=== PATIENT | female | born 1955 | race Caucasian/White ===

== ENCOUNTER → 2017-03-05 | Outpatient (REF) | payer BC ==
[2017-03-05 12:21] LABS: MEAN CORPUSCULAR HEMOGLOBIN 29.5 pg (27.0-33.0); MEAN CORPUSCULAR HGB CONC 33.1 g/dl (32.0-36.5); MEAN CORPUSCULAR VOLUME 89.1 fl (80.0-96.0); PLATELET COUNT, AUTOMATED 339 10^3/uL (150-450); RED CELL DISTRIBUTION WIDTH 13.5 % (11.5-14.5); WHITE BLOOD COUNT 6.9 10^3/uL (4.0-10.0)
[2017-03-05 12:26] LABS: ALBUMIN 3.8 GM/DL (3.2-5.2); ALBUMIN/GLOBULIN RATIO 1.36 (1.00-1.93); BILIRUBIN,TOTAL 0.5 MG/DL (0.2-1.0); CALCIUM LEVEL 8.8 MG/DL (8.5-10.1); CREATININE FOR GFR 1.24 MG/DL (0.55-1.02); GLOMERULAR FILTRATION RATE 47.1 (>51); POTASSIUM SERUM 4.1 MEQ/L (3.5-5.1); TOTAL PROTEIN 6.6 GM/DL (6.4-8.2)
== END ==
LOC: M LABDRAW1 11:28
PROVIDERS: ATTEND Nurse Practitioner Adult Health
DX: Z00.00 Encounter for general adult medical examination without abnormal findings (principal); E04.1 Nontoxic single thyroid nodule; R73.01 Impaired fasting glucose; E78.2 Mixed hyperlipidemia

== ENCOUNTER → 2017-09-24 | Outpatient (REF) | payer BC ==
[2017-09-24 15:44] LABS: URIC ACID 7.4 MG/DL (2.6-6.0)
== END ==
LOC: M SFHCPLAZ 12:46
DX: M10.072 Idiopathic gout, left ankle and foot (principal)
CPT/HCPCS: 84550

== ENCOUNTER → 2018-04-09 | Outpatient (REF) | payer BC ==
[2018-04-09 18:28] LABS: ALBUMIN 3.7 GM/DL (3.2-5.2); BILIRUBIN,TOTAL 0.4 MG/DL (0.2-1.0); CALCIUM LEVEL 9.1 MG/DL (8.8-10.2); CHOLESTEROL RISK RATIO 3.953 (<5); CREATININE FOR GFR 1.21 MG/DL (0.55-1.30); GLOMERULAR FILTRATION RATE 48.3 (>45); POTASSIUM SERUM 4.6 MEQ/L (3.5-5.1); THYROID STIMULATING HORMONE 1.35 uIU/ML (0.358-3.740); TOTAL PROTEIN 6.3 GM/DL (6.4-8.2)
[2018-04-09 18:57] LABS: HEMOGLOBIN A1c 5.8 %
== END ==
LOC: M LABDRAW1 17:17
PROVIDERS: ATTEND Nurse Practitioner Adult Health
DX: Z00.00 Encounter for general adult medical examination without abnormal findings (principal); R73.01 Impaired fasting glucose; E78.2 Mixed hyperlipidemia; E04.1 Nontoxic single thyroid nodule

== ENCOUNTER → 2018-05-04 | Outpatient (CLI) | payer BC ==
--- NOTE | 2018-05-04 13:31 | REPMRS ---
Patient History The patient states she has not had a clinical breast exam in over a year. Family history of prostate cancer at age 70 in father. Took hormonal contraceptives for 2 years. Took unspecified hormones for 13 years. Digital Woman Screen Mammo: May 04, 2018 - Exam #: [id number] Bilateral CC and MLO view(s) were taken. Technologist: Sarika Puentes, Technologist Prior study comparison: November 15, 2015, digital woman screen mammo performed at [facility]. August 05, 2014, digital woman screen mammo performed at [facility]. FINDINGS: The breast tissue is almost entirely fat. There has been no change in the appearance of the mammogram from the prior studies. There is no interval development of dominant mass, areas of architectural distortion, or clustered microcalcification typical of malignancy. 3-D tomosynthesis shows no additional findings. No significant changes when compared with prior studies. Assessment: BI-RADS/ACR category 1 mammogram. Negative Mammogram. Recommendation Routine screening mammogram in 1 year. A. Negative x-ray reports should not delay biopsy if a dominant or clinically suspicious mass is present. B. Four to eight percent of cancers are not identified by mammography. C. Adenosis and dense breast may obscure an underlying neoplasm.(for women over age 40). This mammogram was interpreted with the aid of an FDA-approved computer-aided dectection system. Electronically Signed By: Chencho Fitzpatrick MD 05/04/18 1533
== END ==
LOC: M WHC 11:24
PROVIDERS: ATTEND Nurse Practitioner Adult Health
DX: Z12.31 Encounter for screening mammogram for malignant neoplasm of breast (principal); Z92.0 Personal history of contraception; Z92.29 Personal history of other drug therapy

== ENCOUNTER → 2018-12-18 | Outpatient (REF) | payer BC | LOC: M LAB REF 15:27 | PROVIDERS: ATTEND Plastic Surgery Surgery of the Hand | DX: L82.1 Other seborrheic keratosis (principal) ==

== ENCOUNTER → 2019-06-08 | Outpatient (CLI) | payer BC ==
--- NOTE | 2019-06-08 16:06 | REP ---
MRI right knee without contrast: History: Primary osteoarthritis to the right knee. Comparison right knee radiographs August 16, 2009. Comparison MRI study of the right knee is from June 02, 2015. Technique: Axial, coronal and sagittal imaging planes are utilized. Proton density and T2-weighted scans were obtained in the usual fashion with and without fat saturation. MRI findings: There is a moderate sized joint effusion. The previously noted medially positioned periarticular/parameniscal cyst is again seen medial to the medial femoral condyle. This measures 3.2 cm anterior to posterior by 0.8 cm in greatest thickness by 3.9 cm craniocaudal span. The posteromedial loose body is again visible 8 mm in greatest diameter posteromedially at the level of the medial tibial plateau, posterior horn, medial meniscus. This is slightly larger than on the prior study. There is moderate three compartment osteoarthritis with patellofemoral narrowing. There is full-thickness chondromalacia in the lateral patellar facet. The femoral trochlear groove is shallow and there is severe chondromalacia in the lateral aspect of this. These findings are more pronounced. There is moderate to severe chondromalacia in the medial compartment with partial thickness thinning of the medial femoral condyle and to a lesser extent medial tibial plateau cartilage. There is well established medial and lateral compartment spurring. Mild chondromalacia is seen in the lateral compartment. There is a horizontal tear pattern in the lateral meniscus at midbody and anterior horn level similar to the prior study. No definite medial meniscal tear is appreciated. Anterior posterior cruciate ligaments are intact. Patellar and quadriceps tendons have an intact appearance. There is no evidence of medial or lateral collateral ligament disruption. Impression: Findings quite similar to the prior study from 2016 with advanced three compartment osteoarthritis and chondromalacia. Joint effusion. Parameniscal cyst adjacent to the medial femoral condyle persists. Tear pattern persists in the lateral meniscus. There is evidence of an 11 mm loose body posteriorly and medially at the joint line. There is a tiny Granados's cyst. Electronically Signed by Maxime Heath MD 06/08/2019 05:19 P
== END ==
LOC: M RAD 12:33
PROVIDERS: ATTEND Orthopaedic Surgery
DX: M17.11 Unilateral primary osteoarthritis, right knee (principal); M25.461 Effusion, right knee; M94.261 Chondromalacia, right knee; M71.21 Synovial cyst of popliteal space [Baker], right knee

== ENCOUNTER → 2019-08-06 | Outpatient (REF) | payer BC ==
[~2019-08-06] MED LIST: BUPR15TA PO; FENO54TA2 PO; K-TA10TA2 PO; LISI-538 PO; MAGN250T7 PO; NEXI40CA PO; TOPR25TA PO; TORS10TA3 PO; VITA50005 PO
[2019-08-06 13:11] LABS: CALCIUM LEVEL 9.6 MG/DL (8.8-10.2); CREATININE FOR GFR 1.33 MG/DL (0.55-1.30); MAGNESIUM LEVEL 2.1 MG/DL (1.8-2.4); POTASSIUM SERUM 3.9 MEQ/L (3.5-5.1)
[2019-08-06 15:07] LABS: HEMOGLOBIN A1c 5.5 %
== END ==
LOC: M PLALAB 10:44
PROVIDERS: ATTEND Family Medicine
DX: R73.01 Impaired fasting glucose (principal); I12.9 Hypertensive chronic kidney disease with stage 1 through stage 4 chronic kidney disease, or unspecified chronic kidney disease; N18.3 Chronic kidney disease, stage 3 (moderate)

== ENCOUNTER → 2019-08-06 | Outpatient (CLI) | payer BC ==
--- NOTE | 2019-08-11 12:26 | SLEEPCENT ---
DATE OF PROCEDURE: 08/06/2019 INTERPRETATION: Nocturnal polysomnography was performed for evaluation of sleep physiology in this patient scheduled for surgery who has the comorbidities hypertension and obesity. 7 hours and 49 minutes of data were reviewed. There were 366.5 minutes of sleep identified. Sleep latency was prolonged at 35.5 minutes. REM latency also prolonged at 210.5 minutes. Sleep architecture showed poor progression with fragmentation early in the study. There was only one REM cycle noted. Overall sleep efficiency of 80%. The patient's electrocardiogram showed sinus rhythm with average heart rate of 62 beats per minute, rate ranged 50-80 beats per minute. EEG showed coursing in background but no focal event. There were 142 respiratory events identified of 10 seconds in duration or greater for an apnea-hypopnea index of 23.2. The events were primarily obstructive and not exclusive to sleep stage. More frequent but not exclusive to the supine posture. Arousals from respiratory events occurred only 3.1 times per hour but oxygen desaturations were seen into the low 80s. There was minimal activity in the limb leads. IMPRESSION: Obstructive sleep apnea syndrome (G47.33). Apnea-hypopnea 23.2. RECOMMENDATIONS: The patient should be encouraged to return sleep disorder center for pressure therapy. In the interim, alcohol and sedative avoidance should be practiced and cautioned exercised during the operation of motor vehicles.
== END ==
LOC: M SLEEP 20:00
PROVIDERS: ATTEND Nurse Practitioner Adult Health
DX: G47.33 Obstructive sleep apnea (adult) (pediatric) (principal)

== ENCOUNTER → 2019-08-09 | Outpatient (CLI) | payer BC | LOC: M LABSMTC 12:50 | PROVIDERS: ATTEND Anesthesiology | DX: Z01.818 Encounter for other preprocedural examination (principal); Z11.59 Encounter for screening for other viral diseases ==

== ENCOUNTER 2019-08-12 06:17 | Day surgery (SDC) | payer BC ==
[~2019-08-12] VITALS: Ht 167.6 cm; Wt 126.6 kg
[2019-08-12] MEDS ORDERED: ROPIvacaine 0.5% 30ML INJECTION (J2795 PER 1MG) As Ordered ONE (06:35)
[2019-08-12] MEDS ORDERED: MIDAZOLAM INJ 2MG/2ML VIAL (J2250 PER 1MG) As Ordered ONE (06:52)
[2019-08-12] MEDS ORDERED: ONDANSETRON 4MG/2ML VIAL As Ordered ONE (06:52)
[2019-08-12] MEDS ORDERED: dexameTHASONE 4 MG/ML 1ML VIAL (J1100 PER 1MG) As Ordered ONE (06:52)
[2019-08-12] MEDS ORDERED: fentaNYL 100 MCG/2 ML INJECTION (J3010) As Ordered ONE (06:52)
[2019-08-12] MEDS ORDERED: PHENYLephrine HCL 500 MCG/5 ML (100MCG/ML) SYRINGE (J2370) As Ordered ONE (06:53)
[2019-08-12] MEDS ORDERED: LIDOCAINE 2% 100MG/5ML SDV (FOR ANES.) As Ordered ONE ×2 (06:53→06:58)
[2019-08-12] MEDS ORDERED: ROCURONIUM BROMIDE 50 MG/5 ML VIAL As Ordered ONE ×2 (06:53→06:58)
[2019-08-12] MEDS ORDERED: propofoL 200 MG/20 ML VIAL As Ordered ONE (06:53)
[2019-08-12] MEDS ORDERED: SUGAMMADEX SODIUM 500 MG/5 ML VIAL (BRIDION) As Ordered ONE ×2 (06:53→06:58)
[2019-08-12] MEDS ORDERED: ePHEDrine SULFATE 25 MG/5 ML(5MG/ML) SYRINGE As Ordered ONE (06:53)
[2019-08-12] MEDS ORDERED: LR 1,000 ML IV ONE (07:00)
[2019-08-12] MEDS ORDERED: ceFAZolin SOD 2 GM in IV 1 EA IV ONE (07:30)
[2019-08-12] MEDS ORDERED: ceFAZolin SOD 1 GM in D5W MINI-BAG PLUS 50 ML IV ONE (07:30)
[2019-08-12] MEDS ORDERED: ceFAZolin 2 GM/D5W 50 ML IV BAG (J0690 PER 500MG) As Ordered ONE (07:31)
[2019-08-12] MEDS ORDERED: ceFAZolin 1GM VIAL (J0690 PER 500MG) As Ordered ONE (07:31)
[2019-08-12] MEDS ORDERED: TRIAMCINOLONE ACETONIDE SUSP 40 MG/ML VIAL (J3301) As Ordered ONE (08:01)
[2019-08-12] MEDS ORDERED: GLYCOPYRROLATE INJ 0.2 MG/ML 2 ML VIAL As Ordered ONE (08:06)
[2019-08-12] MEDS ORDERED: KETOROLAC 60 MG/2 ML VIAL As Ordered ONE (08:23)
[2019-08-12] MEDS ORDERED: LR 1,000 ML IV SCH ×2 (08:45)
[2019-08-12] MEDS ORDERED: fentaNYL 100 MCG/2 ML INJECTION (J3010) IV PRN (08:45)
[2019-08-12] MEDS ORDERED: ONDANSETRON 4MG/2ML VIAL IV PRN (08:45)
[2019-08-12] MEDS ORDERED: oxyCODONE 5MG TAB PO PRN (08:45)
[2019-08-12] MEDS ORDERED: ACETAMINOPH W/CODEINE #3 TAB UD PO PRN ×2 (08:45)
[2019-08-12 10:15] VITALS: BP 132/62
== END 2019-08-12 10:40 | disposition home or self-care (01) ==
LOC: M SDC 06:17
PROVIDERS: ATTEND Orthopaedic Surgery
DX: M17.11 Unilateral primary osteoarthritis, right knee (principal); M23.200 Derangement of unspecified lateral meniscus due to old tear or injury, right knee; M23.41 Loose body in knee, right knee; I10 Essential (primary) hypertension; E78.00 Pure hypercholesterolemia, unspecified; K21.9 Gastro-esophageal reflux disease without esophagitis; J45.909 Unspecified asthma, uncomplicated; E66.9 Obesity, unspecified; G47.30 Sleep apnea, unspecified; R06.83 Snoring; Z79.899 Other long term (current) drug therapy; Z87.891 Personal history of nicotine dependence
CPT/HCPCS: 29880; J0690; J1100; J1885; J2250; J2370; J2405; J2795; J3010; J3301

== ENCOUNTER → 2020-07-05 | Outpatient (REF) | payer BC ==
[~2020-07-05] MED LIST changes: -LISI-538 PO; +LISI20TA33 PO
[2020-07-05 13:40] LABS: HEMOGLOBIN A1c 5.5 %
[2020-07-05 13:58] LABS: BILIRUBIN,TOTAL 0.7 MG/DL (0.2-1.0); CALCIUM LEVEL 9.9 MG/DL (8.8-10.2); CHOLESTEROL RISK RATIO 4.27 (<5); CREATININE FOR GFR 1.26 MG/DL (0.55-1.30); FREE T4 1.38 NG/DL (0.76-1.46); GLOMERULAR FILTRATION RATE 45.7 (>45); POTASSIUM SERUM 4.3 MEQ/L (3.5-5.1); THYROID STIMULATING HORMONE 2.79 uIU/ML (0.358-3.740); TOTAL PROTEIN 7.3 GM/DL (6.4-8.2)
== END ==
LOC: M SFHCPLAZ 10:33 → M SFHCADAM 10:37
PROVIDERS: ATTEND Nurse Practitioner Adult Health
DX: E78.2 Mixed hyperlipidemia (principal); R73.01 Impaired fasting glucose; E04.1 Nontoxic single thyroid nodule

== ENCOUNTER → 2020-08-10 | Outpatient (CLI) | payer BC ==
--- NOTE | 2020-08-10 15:11 | REPMRS ---
Patient History The patient states she has not had a clinical breast exam in over a year. Family history of prostate cancer at age 70 in father. Took hormonal contraceptives for 2 years. Took unspecified hormones for 13 years. Patient states no breast complaints. Patient tejinder signed the MRS history sheet. Digital Woman Screen Mammo: August 10, 2020 - Exam #: [id number] Bilateral CC and MLO view(s) were taken. Technologist: Kristal Hicks, Technologist Prior study comparison: May 04, 2018, bilateral digital woman screen mammo performed at [facility]. November 15, 2015, digital woman screen mammo performed at [facility]. August 05, 2014, digital woman screen mammo performed at [facility]. FINDINGS: The breast tissue is almost entirely fat. The Volpara volumetric breast density category is: A. There has been no change in the appearance of the mammogram from the prior studies. There is no interval development of dominant mass, architectural distortion, or grouped microcalcification typical of malignancy. 3-D tomosynthesis shows no additional findings. Assessment: BI-RADS/ACR category 1 mammogram. Negative Mammogram. Recommendation Routine screening mammogram of both breasts in 1 year (for women over age 40). This patient's [facility] Lifetime Breast Cancer RIsk is estimated at 7.5 %. This mammogram was interpreted with the aid of an FDA-approved computer-aided dectection system. Electronically Signed By: Jose Manuel Heath MD 08/10/20 1745
== END ==
LOC: M WHC 14:25
PROVIDERS: ATTEND Nurse Practitioner Adult Health
DX: Z12.31 Encounter for screening mammogram for malignant neoplasm of breast (principal); Z80.42 Family history of malignant neoplasm of prostate

== ENCOUNTER 2020-12-22 13:27 | Outpatient (CLI) | payer BC ==
[~2020-12-22 13:27] MED LIST changes: +ALBUTEROL 90 MCG/ACT 8GM HFA INHALER INH PRN; +ALBUTEROL SULFATE 2.5 MG/0.5 ML INH NEB SOLN INH PRN; +EPINEPHrine INJ 1 MG/ML 1ML AMP IM PRN; +ERGO500029 PO; +NS 1,000 ML IV SCH; -VITA50005 PO; +diphenhydrAMINE 50MG/ML VIAL (J1200) IV PRN; +methylPREDNISolone 125MG 2ML VIAL IV PRN
[2020-12-22] MEDS ORDERED: methylPREDNISolone 40MG 1ML VIAL IV ONE (13:30)
[2020-12-22] MEDS ORDERED: CASIRIVIMAB/IMDEVIMAB 1,200 MG in NS 250 ML IV ONE (13:30)
[2020-12-22] MEDS ORDERED: ACETAMINOPHEN TAB 650MG DOSE (2X325MG) PO ONE (13:30)
[2020-12-22] MEDS ORDERED: CASIRIVIMAB (REGN10933) 600 MG, IMDEVIMAB (REGN10987) 600 MG in NS 250 ML IV ONE (13:30)
[2020-12-22] MEDS ORDERED: diphenhydrAMINE 50MG CAP PO ONE (13:30)
[2020-12-22 14:12] VITALS: BP 148/97
[2020-12-22 14:29] VITALS: BP 147/69
[2020-12-22 14:54] VITALS: BP 146/69
[2020-12-22 15:28] VITALS: BP 145/70
[2020-12-22 16:29] VITALS: BP 146/69
== END 2020-12-22 16:45 | disposition home or self-care (01) ==
LOC: M OPCLI4PR 13:27 → M MS4PR 13:41 → M OPCLI4PR 16:45
PROVIDERS: ATTEND Physician Assistant
DX: U07.1 COVID-19 (principal); Z88.8 Allergy status to other drugs, medicaments and biological substances
CPT/HCPCS: 96375; J2920; M0243

== ENCOUNTER → 2021-07-02 | Outpatient (CLI) | payer BC ==
[~2021-07-02] MED LIST changes: -ALBUTEROL 90 MCG/ACT 8GM HFA INHALER INH PRN; -ALBUTEROL SULFATE 2.5 MG/0.5 ML INH NEB SOLN INH PRN; -EPINEPHrine INJ 1 MG/ML 1ML AMP IM PRN; -NS 1,000 ML IV SCH; -diphenhydrAMINE 50MG/ML VIAL (J1200) IV PRN; -methylPREDNISolone 125MG 2ML VIAL IV PRN
[2021-07-02 17:40] LABS: BILIRUBIN,TOTAL 0.6 MG/DL (0.2-1.0); CALCIUM LEVEL 9.7 MG/DL (8.8-10.2); CHOLESTEROL RISK RATIO 4.2 (<5); CREATININE FOR GFR 1.12 MG/DL (0.55-1.30); GLOMERULAR FILTRATION RATE 52.1 (>45); MAGNESIUM LEVEL 2.2 MG/DL (1.8-2.4); POTASSIUM SERUM 4.5 MEQ/L (3.5-5.1); THYROID STIMULATING HORMONE 1.24 uIU/ML (0.358-3.740)
[2021-07-02 17:53] LABS: HEMOGLOBIN A1c 5.4 %
== END ==
LOC: M PLALAB 15:25
PROVIDERS: ATTEND Nurse Practitioner Adult Health
DX: R73.01 Impaired fasting glucose (principal); Z00.00 Encounter for general adult medical examination without abnormal findings; N18.30 Chronic kidney disease, stage 3 unspecified; E04.1 Nontoxic single thyroid nodule; E78.2 Mixed hyperlipidemia

== ENCOUNTER → 2021-09-12 | Outpatient (CLI) | payer BC | LOC: M WHC 11:55 | PROVIDERS: ATTEND Nurse Practitioner Adult Health | DX: Z12.31 Encounter for screening mammogram for malignant neoplasm of breast (principal) ==

== ENCOUNTER → 2022-04-15 | Outpatient (CLI) | payer BC ==
[2022-04-15 16:21] LABS: ALBUMIN 4.1 G/DL (3.2-5.2); BILIRUBIN,TOTAL 0.5 MG/DL (0.3-1.2); CALCIUM LEVEL 10.1 MG/DL (8.3-10.6); CHOLESTEROL RISK RATIO 4.13 (<5); CREATININE FOR GFR 1.15 MG/DL (0.55-1.30); GLOMERULAR FILTRATION RATE 50.6 (>45); HDL CHOLESTEROL 47.6 MG/DL (>40); MAGNESIUM LEVEL 1.9 MG/DL (1.8-2.4); POTASSIUM SERUM 4.9 MMOL/L (3.5-5.1); TOTAL PROTEIN 7.1 G/DL (5.7-8.2)
[2022-04-15 16:22] LABS: THYROID STIMULATING HORMONE 1.457 uIU/ML (0.55-4.78)
[2022-04-15 16:29] LABS: HEMATOCRIT 44.2 % (36.0-47.0); HEMOGLOBIN 14.3 g/dl (12.0-15.5); MEAN CORPUSCULAR HEMOGLOBIN 30.3 pg (27.0-33.0); MEAN CORPUSCULAR HGB CONC 32.4 g/dl (32.0-36.5); MEAN CORPUSCULAR VOLUME 93.6 fl (80.0-96.0); PLATELET COUNT, AUTOMATED 307 10^3/uL (150-450); RED BLOOD COUNT 4.72 10^6/uL (4.00-5.40); WHITE BLOOD COUNT 8.1 10^3/uL (4.0-10.0)
[2022-04-15 16:38] LABS: HEMOGLOBIN A1c 5.3 % (4.0-6.0)
== END ==
LOC: M PLALAB 12:47
PROVIDERS: ATTEND Nurse Practitioner Adult Health
DX: R73.01 Impaired fasting glucose (principal); I10 Essential (primary) hypertension; E78.2 Mixed hyperlipidemia; E56.9 Vitamin deficiency, unspecified

== ENCOUNTER → 2022-09-02 | Outpatient (CLI) | payer MEDICARE ==
[~2022-09-02] MED LIST changes: +HYDR-3713 PO; -K-TA10TA2 PO; +POTA-165 PO; +VITA500C24 PO; +VITMTA PO
== END ==
LOC: M PLAIMG 15:02
PROVIDERS: ATTEND Nurse Practitioner Adult Health
DX: M75.31 Calcific tendinitis of right shoulder (principal)

== ENCOUNTER → 2022-09-02 | Outpatient (CLI) | payer MEDICARE | LOC: M WHC 14:26 | PROVIDERS: ATTEND Nurse Practitioner Adult Health | DX: Z12.31 Encounter for screening mammogram for malignant neoplasm of breast (principal) ==

== ENCOUNTER → 2022-09-09 | Day surgery (SDC) | payer MEDICARE ==
[~2022-09-09] VITALS: Ht 165.1 cm; Wt 125.5 kg
[~2022-09-09] MED LIST changes: +ACETAMINOPHEN 1000MG 100ML IV BAG As Ordered ONE; +KETOROLAC 60MG 2ML VIAL As Ordered ONE; +LIDOCAINE 2% 100MG/5ML SDV (FOR ANES.) As Ordered ONE; +LR 1,000 ML IV SCH; +MIDAZOLAM INJ 2MG/2ML VIAL As Ordered ONE; +ONDANSETRON 4MG 2ML VIAL As Ordered ONE; +ONDANSETRON 4MG 2ML VIAL IV PRN; +ROCURONIUM BROMIDE 50MG/5ML VIAL As Ordered ONE; +SUGAMMADEX SODIUM 500 MG/5 ML VIAL (BRIDION) As Ordered ONE; +fentaNYL 100 MCG/2 ML INJECTION As Ordered ONE; +fentaNYL 100 MCG/2 ML INJECTION IV PRN; +propofoL 200 MG/20 ML VIAL As Ordered ONE
[2022-09-09] MEDS: oxyCODONE 5MG TAB PO PRN ×2 (16:12→16:51)
[2022-09-09] MEDS: HYDROMORPHONE HCL 0.5 MG/ 0.5 ML SYRINGE IV PRN ×4 (16:13→16:51)
[2022-09-09 18:30] VITALS: BP 149/83; TEMP 97; O2SAT 95
== END | disposition home or self-care (01) ==
LOC: M SDC 10:41
PROVIDERS: ATTEND Surgery
DX: K80.10 Calculus of gallbladder with chronic cholecystitis without obstruction (principal); J45.909 Unspecified asthma, uncomplicated; I10 Essential (primary) hypertension; E78.5 Hyperlipidemia, unspecified; M10.9 Gout, unspecified; K21.9 Gastro-esophageal reflux disease without esophagitis; G47.33 Obstructive sleep apnea (adult) (pediatric); Z79.899 Other long term (current) drug therapy; Z88.8 Allergy status to other drugs, medicaments and biological substances
CPT/HCPCS: 47562; 88304; J0131; J1100; J1170; J1885; J2250; J2405; J3010; S2900

== ENCOUNTER → 2023-01-22 | Outpatient (CLI) | payer MEDICARE ==
[~2023-01-22] MED LIST changes: -ACETAMINOPHEN 1000MG 100ML IV BAG As Ordered ONE; -KETOROLAC 60MG 2ML VIAL As Ordered ONE; -LIDOCAINE 2% 100MG/5ML SDV (FOR ANES.) As Ordered ONE; -LR 1,000 ML IV SCH; -MIDAZOLAM INJ 2MG/2ML VIAL As Ordered ONE; -ONDANSETRON 4MG 2ML VIAL As Ordered ONE; -ONDANSETRON 4MG 2ML VIAL IV PRN; -ROCURONIUM BROMIDE 50MG/5ML VIAL As Ordered ONE; -SUGAMMADEX SODIUM 500 MG/5 ML VIAL (BRIDION) As Ordered ONE; -fentaNYL 100 MCG/2 ML INJECTION As Ordered ONE; -fentaNYL 100 MCG/2 ML INJECTION IV PRN; -propofoL 200 MG/20 ML VIAL As Ordered ONE
[2023-01-22 16:07] LABS: BASO # 0.1 10^3/uL (0.0-0.2); BASO % 0.9 % (0.0-1.0); EOS # 0.3 10^3/uL (0.0-0.5); EOS % 3.5 % (0.0-3.0); HEMATOCRIT 43.1 % (36.0-47.0); HEMOGLOBIN 14.4 g/dl (12.0-15.5); LYMPH # 2.8 10^3/uL (1.5-5.0); LYMPH % 34.6 % (24.0-44.0); MEAN CORPUSCULAR HEMOGLOBIN 30.8 pg (27.0-33.0); MEAN CORPUSCULAR HGB CONC 33.4 g/dl (32.0-36.5); MEAN CORPUSCULAR VOLUME 92.3 fl (80.0-96.0); MONO # 0.6 10^3/uL (0.0-0.8); NEUTROPHILS # 4.3 10^3/uL (1.5-8.5); NEUTROPHILS % 52.9 % (36.0-66.0); PLATELET COUNT, AUTOMATED 322 10^3/uL (150-450); RED BLOOD COUNT 4.67 10^6/uL (4.00-5.40)
[2023-01-22 16:42] LABS: ALBUMIN 4.1 G/DL (3.2-5.2); BILIRUBIN,TOTAL 0.6 MG/DL (0.3-1.2); CALCIUM LEVEL 10.1 MG/DL (8.3-10.6); CREATININE FOR GFR 1.18 MG/DL (0.55-1.30); GLOMERULAR FILTRATION RATE 48.9 (>45); PERCENT SATURATION 33.5 % (13.2-45.0); POTASSIUM SERUM 4.7 MMOL/L (3.5-5.1)
[2023-01-22 16:43] LABS: FERRITIN 93.6 NG/ML (7.3-270.7)
[2023-01-24 12:12] LABS: ANTINUCLEAR ANTIBODIES DIRECT Negative (Negative)
== END ==
LOC: M PLALAB 14:32
PROVIDERS: ATTEND Internal Medicine Gastroenterology
DX: R93.3 Abnormal findings on diagnostic imaging of other parts of digestive tract (principal); Z86.010 Personal history of colon polyps; R12 Heartburn; Z86.39 Personal history of other endocrine, nutritional and metabolic disease

== ENCOUNTER → 2023-05-13 | Outpatient (CLI) | payer MEDICARE ==
[2023-05-13 15:45] LABS: HEMATOCRIT 42.9 % (36.0-47.0); HEMOGLOBIN 13.9 g/dl (12.0-15.5); MEAN CORPUSCULAR HEMOGLOBIN 30.6 pg (27.0-33.0); MEAN CORPUSCULAR HGB CONC 32.4 g/dl (32.0-36.5); MEAN CORPUSCULAR VOLUME 94.5 fl (80.0-96.0); PLATELET COUNT, AUTOMATED 318 10^3/uL (150-450); RED BLOOD COUNT 4.54 10^6/uL (4.00-5.40); WHITE BLOOD COUNT 9.4 10^3/uL (4.0-10.0)
[2023-05-13 15:52] LABS: URIC ACID 8.2 MG/DL (3.1-7.8)
[2023-05-13 15:53] LABS: THYROID STIMULATING HORMONE 2.098 uIU/ML (0.55-4.78)
[2023-05-13 15:55] LABS: ALBUMIN 3.8 G/DL (3.2-5.2); ALKALINE PHOSPHATASE 63 U/L (46-116); ALT/SGPT 12 U/L (7.0-40); AST/SGOT 10 U/L (<34); BILIRUBIN,TOTAL 0.5 MG/DL (0.3-1.2); BLOOD UREA NITROGEN 23 MG/DL (9-23); CALCIUM LEVEL 9.7 MG/DL (8.3-10.6); CARBON DIOXIDE LEVEL 31 MMOL/L (20-31); CHLORIDE LEVEL 111 MMOL/L (98-107); CHOLESTEROL LEVEL 195 MG/DL (<200); CHOLESTEROL RISK RATIO 4.57 (<5); CREATININE FOR GFR 1.17 MG/DL (0.55-1.30); GLOMERULAR FILTRATION RATE 49.4 (>45); GLUCOSE, FASTING 102 MG/DL (74-106); HDL CHOLESTEROL 42.6 MG/DL (>40); MAGNESIUM LEVEL 1.9 MG/DL (1.8-2.4); NON-HDL-C 152.4 MG/DL; POTASSIUM SERUM 4.6 MMOL/L (3.5-5.1); SODIUM LEVEL 141 MMOL/L (136-145); TOTAL PROTEIN 6.7 G/DL (5.7-8.2); TRIGLYCERIDES LEVEL 102 MG/DL (<150)
[2023-05-13 15:57] LABS: TOTAL 25(OH) VITAMIN D 93.1 NG/ML (20.0-100.0)
[2023-05-13 15:59] LABS: HEMOGLOBIN A1c 5.5 % (4.0-6.0)
== END ==
LOC: M PLALAB 11:57
PROVIDERS: ATTEND Nurse Practitioner Adult Health
DX: I12.9 Hypertensive chronic kidney disease with stage 1 through stage 4 chronic kidney disease, or unspecified chronic kidney disease (principal); R73.01 Impaired fasting glucose; E04.1 Nontoxic single thyroid nodule; M10.072 Idiopathic gout, left ankle and foot; E56.9 Vitamin deficiency, unspecified; E78.2 Mixed hyperlipidemia; N18.30 Chronic kidney disease, stage 3 unspecified; K22.70 Barrett's esophagus without dysplasia; M19.90 Unspecified osteoarthritis, unspecified site; K21.9 Gastro-esophageal reflux disease without esophagitis; M48.00 Spinal stenosis, site unspecified

== ENCOUNTER 2024-01-07 07:57 | Day surgery (SDC) | payer MEDICARE ==
[~2024-01-07] VITALS: Ht 165.1 cm; Wt 121.8 kg
[~2024-01-07 07:57] MED LIST changes: +LIDOCAINE 2% 100MG/5ML SDV (FOR ANES.) As Ordered ONE; +METO1TAB32 PO; +ONDANSETRON 4MG 2ML VIAL As Ordered ONE; +POTA1TAB23 PO; +QUER500C PO; +THERTAB52 PO; +TORS5TAB2 PO; +ZINC220CA PO; +fentaNYL 100 MCG/2 ML INJECTION As Ordered ONE; +propofoL 500 MG/50 ML VIAL As Ordered ONE
[2024-01-07 09:30] VITALS: TEMP 98
[2024-01-07 09:52] VITALS: BP 115/56; O2SAT 96
== END 2024-01-07 09:59 | disposition home or self-care (01) ==
LOC: M OPP 07:57
PROVIDERS: ATTEND Internal Medicine Gastroenterology
DX: Z12.11 Encounter for screening for malignant neoplasm of colon (principal); K21.00 Gastro-esophageal reflux disease with esophagitis, without bleeding; K44.9 Diaphragmatic hernia without obstruction or gangrene; K64.0 First degree hemorrhoids; K57.30 Diverticulosis of large intestine without perforation or abscess without bleeding; Z86.0100 Personal history of colon polyps, unspecified; I10 Essential (primary) hypertension; E78.00 Pure hypercholesterolemia, unspecified; J45.909 Unspecified asthma, uncomplicated; R12 Heartburn; I49.3 Ventricular premature depolarization; G47.30 Sleep apnea, unspecified; Z79.899 Other long term (current) drug therapy; Z88.8 Allergy status to other drugs, medicaments and biological substances; Z90.710 Acquired absence of both cervix and uterus; M10.9 Gout, unspecified
CPT/HCPCS: 43239; 88305; G0105; J2405; J3010

== ENCOUNTER → 2024-05-13 | Outpatient (REF) | payer MEDICARE ==
[~2024-05-13] MED LIST changes: -LIDOCAINE 2% 100MG/5ML SDV (FOR ANES.) As Ordered ONE; -ONDANSETRON 4MG 2ML VIAL As Ordered ONE; -fentaNYL 100 MCG/2 ML INJECTION As Ordered ONE; -propofoL 500 MG/50 ML VIAL As Ordered ONE
[2024-05-13 18:59] LABS: HEMOGLOBIN 13.9 g/dl (12.0-15.5); MEAN CORPUSCULAR HEMOGLOBIN 30.3 pg (27.0-33.0); MEAN CORPUSCULAR HGB CONC 32.3 g/dl (32.0-36.5); MEAN CORPUSCULAR VOLUME 93.7 fl (80.0-96.0); PLATELET COUNT, AUTOMATED 320 10^3/uL (150-450); RED BLOOD COUNT 4.59 10^6/uL (4.00-5.40)
[2024-05-13 19:25] LABS: FREE T4 1.47 NG/DL (0.89-1.76)
[2024-05-13 19:26] LABS: THYROID STIMULATING HORMONE 1.273 uIU/ML (0.55-4.78)
[2024-05-13 19:28] LABS: TOTAL 25(OH) VITAMIN D 95.3 NG/ML (20.0-100.0)
[2024-05-13 19:29] LABS: ALBUMIN 3.8 G/DL (3.2-5.2); BILIRUBIN,TOTAL 0.5 MG/DL (0.3-1.2); CALCIUM LEVEL 9.6 MG/DL (8.3-10.6); CREATININE FOR GFR 1.11 MG/DL (0.55-1.30); GLOMERULAR FILTRATION RATE 52.4 (>45); HDL CHOLESTEROL 48.2 MG/DL (>40); LDL CHOLESTEROL 127.6 MG/DL (<100); NON-HDL-C 144.8 MG/DL; POTASSIUM SERUM 5.1 MMOL/L (3.5-5.1); TOTAL PROTEIN 6.8 G/DL (5.7-8.2)
[2024-05-13 20:13] LABS: HEMOGLOBIN A1c 5.6 % (4.0-6.0)
== END ==
LOC: M LABDRWAD 17:53
PROVIDERS: ATTEND Nurse Practitioner Adult Health
DX: I10 Essential (primary) hypertension (principal); E78.2 Mixed hyperlipidemia; E56.9 Vitamin deficiency, unspecified; R73.01 Impaired fasting glucose; Z79.899 Other long term (current) drug therapy

== ENCOUNTER → 2024-11-11 | Outpatient (CLI) | payer MEDICARE ==
[~2024-11-11] MED LIST changes: +CARD60TA3 PO; +DILT60CASR PO; +ELIQ5TAB PO; +HOLTER MONITOR XX; +XARE20TA PO
[2024-11-11 17:31] LABS: BASO # 0.1 10^3/uL (0.0-0.2); BASO % 1.1 % (0.0-1.0); EOS # 0.2 10^3/uL (0.0-0.5); EOS % 3.3 % (0.0-3.0); LYMPH # 2.0 10^3/uL (1.5-5.0); LYMPH % 28.2 % (24.0-44.0); MONO # 0.6 10^3/uL (0.0-0.8); MONO % 8.9 % (2.0-8.0); NEUTROPHILS # 4.2 10^3/uL (1.5-8.5); NEUTROPHILS % 58.2 % (36.0-66.0); PLATELET COUNT, AUTOMATED 304 10^3/uL (150-450)
[2024-11-11 18:03] LABS: ALT/SGPT 19.0 U/L (7.0-40); AST/SGOT 19.0 U/L (<34); CALCIUM LEVEL 9.9 MG/DL (8.3-10.6); CARBON DIOXIDE LEVEL 29.0 MMOL/L (20-31); CHLORIDE LEVEL 105.0 MMOL/L (98-107); CHOLESTEROL LEVEL 213.0 MG/DL (<200); CHOLESTEROL RISK RATIO 4.67 (<5); CREATININE FOR GFR 1.05 MG/DL (0.55-1.30); GLOMERULAR FILTRATION RATE 58.2 (>45); LDL CHOLESTEROL 148.0 MG/DL (<100); NON-HDL-C 167.4 MG/DL; POTASSIUM SERUM 4.9 MMOL/L (3.5-5.1); SODIUM LEVEL 145.0 MMOL/L (136-145); TRIGLYCERIDES LEVEL 97.0 MG/DL (<150)
[2024-11-11 19:06] LABS: ESTIMATED AVERAGE GLUCOSE 114.0 MG/DL (60-110)
== END ==
LOC: M PLALAB 14:42
PROVIDERS: ATTEND Internal Medicine Cardiovascular Disease
DX: I48.0 Paroxysmal atrial fibrillation (principal); I49.3 Ventricular premature depolarization; E78.00 Pure hypercholesterolemia, unspecified

== ENCOUNTER 2024-12-01 22:15 | Inpatient (IN) | payer MEDICARE ==
[~2024-12-01] VITALS: Ht 167.6 cm; Wt 128.0 kg
[2024-12-01 23:42] LABS: BASO # 0.1 10^3/uL (0.0-0.2); BASO % 1.1 % (0.0-1.0); EOS # 0.4 10^3/uL (0.0-0.5); EOS % 3.4 % (0.0-3.0); LYMPH # 3.0 10^3/uL (1.5-5.0); LYMPH % 28.0 % (24.0-44.0); MONO # 1.0 10^3/uL (0.0-0.8); MONO % 9.0 % (2.0-8.0); NEUTROPHILS # 6.3 10^3/uL (1.5-8.5); NEUTROPHILS % 58.3 % (36.0-66.0); PLATELET COUNT, AUTOMATED 378 10^3/uL (150-450)
[2024-12-01] MEDS: dilTIAZem 25 MG/5 ML VIAL IV STA (23:48)
[2024-12-02 00:15] LABS: CK-MB VALUE MASS 1.2 NG/ML (<3.6)
[2024-12-02 00:16] LABS: CPK CREATINE PHOSPHOKINASE 37.0 U/L (34-145); MB/CK RELATIVE INDEX 3.24 (< OR =4)
[2024-12-02 00:19] LABS: FREE T4 1.5 NG/DL (0.89-1.76)
[2024-12-02] MEDS: dilTIAZem 25 MG/5 ML VIAL IV STA (00:28)
[2024-12-02 00:46] LABS: CALCIUM LEVEL 9.4 MG/DL (8.3-10.6); CARBON DIOXIDE LEVEL 29.0 MMOL/L (20-31); CHLORIDE LEVEL 105.0 MMOL/L (98-107); CREATININE FOR GFR 1.24 MG/DL (0.55-1.30); GLOMERULAR FILTRATION RATE 47.7 (>45); MAGNESIUM LEVEL 2.0 MG/DL (1.8-2.4); POTASSIUM SERUM 4.1 MMOL/L (3.5-5.1); SODIUM LEVEL 142.0 MMOL/L (136-145)
[2024-12-02] MEDS: METOPROLOL 5 MG/5 ML VIAL IV PRN ×2 (01:18→03:06)
[2024-12-02 01:58] LABS: CK-MB VALUE MASS 1.3 NG/ML (<3.6)
[2024-12-02 01:59] LABS: CPK CREATINE PHOSPHOKINASE 35.0 U/L (34-145); MB/CK RELATIVE INDEX 3.71 (< OR =4)
[2024-12-02] MEDS: METOPROLOL TART 25 MG TABLET PO ONE (03:22)
[2024-12-02] MEDS ORDERED: MAALOX 30 ML SUSP *UDC PO PRN (05:15)
[2024-12-02] MEDS ORDERED: MOM 30 ML SUSPENSION UDC PO PRN (05:15)
[2024-12-02] MEDS: DIGOXIN INJ 0.5 MG/2 ML AMP IV ONE (05:25)
[2024-12-02] MEDS: DOCUSATE SODIUM 100 MG CAPSULE PO SCH (07:22)
[2024-12-02] MEDS: METOPROLOL TART 25 MG TABLET PO SCH (07:23)
[2024-12-02] MEDS: ACETAMINOPHEN 325 MG TAB PO PRN (07:43)
[2024-12-02] MEDS ORDERED: MAGN400T35 PO (08:00)
[2024-12-02] MEDS ORDERED: DILT180C95 PO (08:00)
[2024-12-02] MEDS ORDERED: BUPR150T12 PO (08:00)
[2024-12-02] MEDS ORDERED: HOME MED LIST COMPLETE! XX SCH (08:05)
[2024-12-02] MEDS ORDERED: DIGOXIN INJ 0.5 MG/2 ML AMP IV SCH (11:00)
[2024-12-02] MEDS: DIGOXIN 0.25 MG TAB PO SCH (11:15)
[2024-12-02 11:47] LABS: PLATELET COUNT, AUTOMATED 341 10^3/uL (150-450)
[2024-12-02 12:11] LABS: ALT/SGPT 13 U/L (7.0-40); AST/SGOT 16 U/L (<34); CALCIUM LEVEL 9.5 MG/DL (8.3-10.6); CARBON DIOXIDE LEVEL 27 MMOL/L (20-31); CHLORIDE LEVEL 107 MMOL/L (98-107); CREATININE FOR GFR 1.08 MG/DL (0.55-1.30); GLOMERULAR FILTRATION RATE 56.3 (>45); POTASSIUM SERUM 4.5 MMOL/L (3.5-5.1); SODIUM LEVEL 139 MMOL/L (136-145)
[2024-12-02] MEDS ORDERED: METOPROLOL TART 25 MG TABLET PO SCH (15:00)
[2024-12-02] MEDS: RIVAROXABAN 10MG TAB PO SCH (17:52)
[2024-12-02 21:19] VITALS: BP 148/85; TEMP 97.2; O2SAT 98
[2024-12-02 22:00] VITALS: O2SAT 93
[2024-12-02] MEDS: MULTIVITAMINS/MINERALS THERAP 1 TAB PO SCH (22:17)
[2024-12-02] MEDS: PANTOPRAZOLE 40MG TAB PO SCH (22:17)
[2024-12-02] MEDS: MAGNESIUM OXIDE 400 MG TAB PO SCH (22:17)
[2024-12-02] MEDS: buPROPion **XL** 150 MG TABLET PO SCH (22:17)
[2024-12-02] MEDS: TORSEMIDE 10 MG TABLET PO SCH (22:18)
[2024-12-02] MEDS: SOTALOL HCL 80 MG TAB PO SCH (22:22)
[2024-12-02] MEDS: FENOFIBRATE 48 MG TABLET PO SCH (22:43)
[2024-12-02 23:00] VITALS: O2SAT 93
[2024-12-02 23:33] VITALS: BP 147/68; TEMP 97.1; O2SAT 97
[2024-12-03] VITALS (18 sets, daily range): BP systolic 101–122; BP diastolic 51–76; TEMP 97.2–98.6; O2SAT 93–98
[2024-12-03 06:29] LABS: PLATELET COUNT, AUTOMATED 379 10^3/uL (150-450)
[2024-12-03 06:56] LABS: ALT/SGPT 14.0 U/L (7.0-40); AST/SGOT 15.0 U/L (<34); CALCIUM LEVEL 9.3 MG/DL (8.3-10.6); CARBON DIOXIDE LEVEL 27.0 MMOL/L (20-31); CHLORIDE LEVEL 107.0 MMOL/L (98-107); CREATININE FOR GFR 1.08 MG/DL (0.55-1.30); GLOMERULAR FILTRATION RATE 56.3 (>45); MAGNESIUM LEVEL 1.9 MG/DL (1.8-2.4); POTASSIUM SERUM 4.1 MMOL/L (3.5-5.1); SODIUM LEVEL 141.0 MMOL/L (136-145)
[2024-12-03] MEDS ORDERED: DIGOXIN 0.125 MG TAB PO SCH (09:00)
[2024-12-03] MEDS: POTASSIUM CHLORIDE 10MEQ SR TABLET PO SCH (09:11)
[2024-12-03] MEDS: METOPROLOL SUCC. 100 MG *XL* TAB PO SCH (09:11)
[2024-12-03] MEDS: RAMELTEON 8 MG TAB PO SCH (22:26)
[2024-12-04] VITALS (13 sets, daily range): BP systolic 102–120; BP diastolic 53–69; TEMP 96.8–97.5; O2SAT 93–99
[2024-12-04 06:42] LABS: PLATELET COUNT, AUTOMATED 349 10^3/uL (150-450)
[2024-12-04 07:13] LABS: ALT/SGPT 11.0 U/L (7.0-40); AST/SGOT 9.0 U/L (<34); CALCIUM LEVEL 9.6 MG/DL (8.3-10.6); CARBON DIOXIDE LEVEL 27.0 MMOL/L (20-31); CHLORIDE LEVEL 107.0 MMOL/L (98-107); CREATININE FOR GFR 1.21 MG/DL (0.55-1.30); GLOMERULAR FILTRATION RATE 49.1 (>45); POTASSIUM SERUM 4.2 MMOL/L (3.5-5.1); SODIUM LEVEL 143.0 MMOL/L (136-145)
[2024-12-04] MEDS ORDERED: METO1TAB33 PO (08:30)
[2024-12-04] MEDS ORDERED: BETA80TA PO (08:30)
[2024-12-04] MEDS ORDERED: COLA100C5 PO (08:30)
== END 2024-12-04 11:41 | disposition home or self-care (01) | DRG 310 ==
LOC: M ED 22:15 → M ED INP 22:16 → M PCU 12-02 21:12 → OBSVTOIN 12-03 09:34
PROVIDERS: ADMIT Student in an Organized Health Care Education/Training Program; ATTEND Student in an Organized Health Care Education/Training Program
PROC: B246ZZZ Ultrasonography of Right and Left Heart (ICD-10-PCS; principal; 2024-12-04)
DX: I48.0 Paroxysmal atrial fibrillation (principal); I10 Essential (primary) hypertension; J45.909 Unspecified asthma, uncomplicated; G47.33 Obstructive sleep apnea (adult) (pediatric); M10.9 Gout, unspecified; I48.92 Unspecified atrial flutter; K21.9 Gastro-esophageal reflux disease without esophagitis; Z90.79 Acquired absence of other genital organ(s); Z90.49 Acquired absence of other specified parts of digestive tract; Z79.899 Other long term (current) drug therapy; Z88.8 Allergy status to other drugs, medicaments and biological substances

== ENCOUNTER 2024-12-24 01:57 | Emergency (ER) | payer MEDICARE ==
[~2024-12-24] VITALS: Ht 167.6 cm; Wt 128.5 kg
[~2024-12-24 01:57] MED LIST changes: +BETA80TA PO; +BUPR150T12 PO; +COLA100C5 PO; +DILT180C95 PO; +MAGN400T35 PO; +METO1TAB33 PO
[2024-12-24] MEDS: NS 500 ML IV ONE (02:30)
[2024-12-24] MEDS: METOPROLOL 5 MG/5 ML VIAL IV SCH (02:35)
[2024-12-24 02:39] LABS: BASO # 0.1 10^3/uL (0.0-0.2); BASO % 1.0 % (0.0-1.0); EOS # 0.4 10^3/uL (0.0-0.5); EOS % 4.0 % (0.0-3.0); LYMPH # 3.4 10^3/uL (1.5-5.0); LYMPH % 34.5 % (24.0-44.0); MONO # 1.0 10^3/uL (0.0-0.8); MONO % 9.8 % (2.0-8.0); NEUTROPHILS # 4.9 10^3/uL (1.5-8.5); NEUTROPHILS % 50.5 % (36.0-66.0); PLATELET COUNT, AUTOMATED 365 10^3/uL (150-450)
[2024-12-24 03:29] LABS: CALCIUM LEVEL 9.4 MG/DL (8.3-10.6); CARBON DIOXIDE LEVEL 29.0 MMOL/L (20-31); CHLORIDE LEVEL 106.0 MMOL/L (98-107); CREATININE FOR GFR 1.3 MG/DL (0.55-1.30); GLOMERULAR FILTRATION RATE 45.1 (>45); POTASSIUM SERUM 4.2 MMOL/L (3.5-5.1); SODIUM LEVEL 145.0 MMOL/L (136-145)
[2024-12-24] MEDS: METOPROLOL TART 12.5 MG PER 1/2 TAB PO ONE (03:34)
[2024-12-24 04:00] VITALS: TEMP 97.2
[2024-12-24 04:30] VITALS: BP 162/75; O2SAT 96
== END 2024-12-24 04:49 | disposition home or self-care (01) ==
LOC: M ED 01:57
DX: R00.2 Palpitations (principal); I48.91 Unspecified atrial fibrillation; E78.5 Hyperlipidemia, unspecified; G47.33 Obstructive sleep apnea (adult) (pediatric); E55.9 Vitamin D deficiency, unspecified; F39 Unspecified mood [affective] disorder; Z86.79 Personal history of other diseases of the circulatory system; Z88.8 Allergy status to other drugs, medicaments and biological substances; Z79.899 Other long term (current) drug therapy
CPT/HCPCS: 71045; 80048; 85025; 93005; 93041; 94760; 96360; 99285; J0616

== ENCOUNTER 2024-12-31 22:04 | Emergency (ER) | payer MEDICARE ==
[~2024-12-31] VITALS: Ht 167.6 cm; Wt 126.1 kg
[2024-12-31 23:11] LABS: BASO # 0.1 10^3/uL (0.0-0.2); BASO % 1.1 % (0.0-1.0); EOS # 0.4 10^3/uL (0.0-0.5); EOS % 3.2 % (0.0-3.0); LYMPH # 3.5 10^3/uL (1.5-5.0); LYMPH % 32.4 % (24.0-44.0); MONO # 1.0 10^3/uL (0.0-0.8); MONO % 9.6 % (2.0-8.0); NEUTROPHILS # 5.8 10^3/uL (1.5-8.5); NEUTROPHILS % 53.5 % (36.0-66.0); PLATELET COUNT, AUTOMATED 376 10^3/uL (150-450)
[2024-12-31 23:36] LABS: CALCIUM LEVEL 9.4 MG/DL (8.3-10.6); CARBON DIOXIDE LEVEL 28.0 MMOL/L (20-31); CHLORIDE LEVEL 105.0 MMOL/L (98-107); CK-MB VALUE MASS 1.4 NG/ML (<3.6); CREATININE FOR GFR 1.24 MG/DL (0.55-1.30); GLOMERULAR FILTRATION RATE 47.7 (>45); POTASSIUM SERUM 4.7 MMOL/L (3.5-5.1); SODIUM LEVEL 144.0 MMOL/L (136-145)
[2024-12-31 23:40] LABS: CPK CREATINE PHOSPHOKINASE 57.0 U/L (34-145); MB/CK RELATIVE INDEX 2.45 (< OR =4)
[2025-01-01 00:56] LABS: CK-MB VALUE MASS 1.8 NG/ML (<3.6)
[2025-01-01 00:58] LABS: CPK CREATINE PHOSPHOKINASE 52.0 U/L (34-145); MB/CK RELATIVE INDEX 3.46 (< OR =4)
[2025-01-01] MEDS: METOPROLOL 5 MG/5 ML VIAL IV STA (01:06)
[2025-01-01] MEDS: METOPROLOL 5 MG/5 ML VIAL IV SCH (02:08)
[2025-01-01] MEDS: dilTIAZem 25 MG/5 ML VIAL IV ONE (04:23)
[2025-01-01] MEDS: DIGOXIN INJ 0.5 MG/2 ML AMP IV STA (06:07)
[2025-01-01] MEDS: AMIODARONE HCL 150 MG in IV 1 EA IV ONE (07:55)
[2025-01-01] MEDS ORDERED: AMIODARONE HCL 360 MG in IV 1 EA IV SCH (08:20)
[2025-01-01] MEDS ORDERED: ACETAMINOPHEN 325 MG TAB PO PRN (08:20)
[2025-01-01] MEDS ORDERED: DRON400T PO (08:23)
[2025-01-01] MEDS ORDERED: HOME MED LIST COMPLETE! XX SCH (08:25)
[2025-01-01] MEDS: dilTIAZem 60 MG TAB PO ONE (09:14)
[2025-01-01] MEDS: dilTIAZem 180 MG **CD** CAPSULE PO SCH (09:15)
[2025-01-01 09:19] LABS: PLATELET COUNT, AUTOMATED 363 10^3/uL (150-450)
[2025-01-01 09:43] VITALS: BP 158/109
[2025-01-01 10:09] LABS: ALT/SGPT 15 U/L (7.0-40); AST/SGOT 23 U/L (<34); CALCIUM LEVEL 9.4 MG/DL (8.3-10.6); CARBON DIOXIDE LEVEL 26 MMOL/L (20-31); CHLORIDE LEVEL 107 MMOL/L (98-107); CREATININE FOR GFR 1.21 MG/DL (0.55-1.30); GLOMERULAR FILTRATION RATE 49.1 (>45); POTASSIUM SERUM 4.5 MMOL/L (3.5-5.1); SODIUM LEVEL 144 MMOL/L (136-145)
[2025-01-01] MEDS ORDERED: CARD180C4 PO (11:09)
[2025-01-01 11:16] VITALS: BP 148/70; TEMP 97.7; O2SAT 94
== END 2025-01-01 11:25 | disposition home or self-care (01) ==
LOC: M ED 22:04 → UNDOADMIN 01-01 08:18 → M ED INP 01-01 08:18 → M ED 01-01 11:25
DX: I48.91 Unspecified atrial fibrillation (principal); I10 Essential (primary) hypertension; J45.909 Unspecified asthma, uncomplicated; K21.9 Gastro-esophageal reflux disease without esophagitis; G47.33 Obstructive sleep apnea (adult) (pediatric); M10.9 Gout, unspecified; Z79.01 Long term (current) use of anticoagulants; Z79.899 Other long term (current) drug therapy; Z88.8 Allergy status to other drugs, medicaments and biological substances
CPT/HCPCS: 71046; 80048; 80053; 82550; 82553; 83605; 84145; 84484; 85025; 85027; 87486; 87581; 87633; 87798; 93005; 96374; 96375; 99285; J0616; J1160; J1163

== ENCOUNTER 2025-01-14 10:23 | Inpatient (IN) | payer MEDICARE ==
[~2025-01-14] VITALS: Ht 167.6 cm; Wt 129.9 kg
[~2025-01-14 10:23] MED LIST changes: +CARD180C4 PO; +DRON400T PO
[2025-01-14] MEDS ORDERED: DILT240C28 PO (10:36)
[2025-01-14 11:19] LABS: BASO # 0.1 10^3/uL (0.0-0.2); BASO % 1.0 % (0.0-1.0); EOS # 0.4 10^3/uL (0.0-0.5); EOS % 3.7 % (0.0-3.0); LYMPH # 1.8 10^3/uL (1.5-5.0); LYMPH % 17.1 % (24.0-44.0); MONO # 1.0 10^3/uL (0.0-0.8); MONO % 9.1 % (2.0-8.0); NEUTROPHILS # 7.2 10^3/uL (1.5-8.5); NEUTROPHILS % 68.7 % (36.0-66.0); PLATELET COUNT, AUTOMATED 344 10^3/uL (150-450)
[2025-01-14 11:46] LABS: ALT/SGPT 13.0 U/L (7.0-40); AST/SGOT 13.0 U/L (<34); CALCIUM LEVEL 9.1 MG/DL (8.3-10.6); CARBON DIOXIDE LEVEL 26.0 MMOL/L (20-31); CHLORIDE LEVEL 104.0 MMOL/L (98-107); CK-MB VALUE MASS 1.1 NG/ML (<3.6); CPK CREATINE PHOSPHOKINASE 37.0 U/L (34-145); CREATININE FOR GFR 1.23 MG/DL (0.55-1.30); GLOMERULAR FILTRATION RATE 48.2 (>45); MB/CK RELATIVE INDEX 2.97 (< OR =4); POTASSIUM SERUM 3.9 MMOL/L (3.5-5.1); SODIUM LEVEL 141.0 MMOL/L (136-145)
[2025-01-14 11:47] LABS: THYROXINE (T4) 10.6 UG/DL (4.5-10.9)
[2025-01-14] MEDS ORDERED: ISOVUE-370 76% 100 ML VIAL As Ordered ONE (12:13)
[2025-01-14 13:05] LABS: CK-MB VALUE MASS < 1.0 NG/ML (<3.6)
[2025-01-14 13:07] LABS: CPK CREATINE PHOSPHOKINASE 39 U/L (34-145)
[2025-01-14] MEDS ORDERED: HOME MED LIST COMPLETE! XX SCH (14:35)
[2025-01-14] MEDS: dilTIAZem 120 MG **CD** CAPSULE PO ONE (14:53)
[2025-01-14] MEDS: DRONEDARONE 400 MG TAB PO ONE (14:54)
[2025-01-14] MEDS: FUROSEMIDE 40 MG/4 ML VIAL IV SCH (19:51)
[2025-01-14] MEDS: DRONEDARONE 400 MG TAB PO SCH (21:00)
[2025-01-14] MEDS: PANTOPRAZOLE 40MG TAB PO SCH (21:45)
[2025-01-14] MEDS: buPROPion **XL** 150 MG TABLET PO SCH (21:45)
[2025-01-14] MEDS: RIVAROXABAN 20MG TAB PO SCH (21:45)
[2025-01-14] MEDS: ACETAMINOPHEN 325 MG TAB PO ONE (21:45)
[2025-01-15 00:25] VITALS: BP 137/76; TEMP 97.7; O2SAT 95
[2025-01-15 04:00] VITALS: BP 122/73; TEMP 97.9; O2SAT 96
[2025-01-15 06:36] LABS: PLATELET COUNT, AUTOMATED 360 10^3/uL (150-450)
[2025-01-15 07:02] LABS: CALCIUM LEVEL 8.9 MG/DL (8.3-10.6); CARBON DIOXIDE LEVEL 30.0 MMOL/L (20-31); CHLORIDE LEVEL 102.0 MMOL/L (98-107); CREATININE FOR GFR 1.18 MG/DL (0.55-1.30); GLOMERULAR FILTRATION RATE 50.6 (>45); MAGNESIUM LEVEL 1.8 MG/DL (1.8-2.4); POTASSIUM SERUM 3.9 MMOL/L (3.5-5.1); SODIUM LEVEL 141.0 MMOL/L (136-145)
[2025-01-15] MEDS: ACETAMINOPHEN 325 MG TAB PO PRN (07:54)
[2025-01-15] MEDS: FUROSEMIDE 40 MG/4 ML VIAL IV SCH ×2 (09:34→17:33)
[2025-01-15] MEDS: dilTIAZem 120 MG **CD** CAPSULE PO SCH (09:35)
[2025-01-15] MEDS: POTASSIUM CHLORIDE 10MEQ SR TABLET PO SCH (09:35)
[2025-01-15] MEDS: MAG SULF 1GM/100ML (MAG RUN) 1 GM in IV 1 EA IV ONE (09:37)
[2025-01-15] MEDS: BISACODYL 5 MG TAB PO SCH (11:00)
[2025-01-15] MEDS: METOPROLOL TART 25 MG TABLET PO ONE (11:58)
[2025-01-15 12:00] VITALS: BP 110/58; TEMP 97.5; O2SAT 95
[2025-01-15] MEDS: POTASSIUM CHLORIDE 10MEQ SR TABLET PO ONE (17:31)
[2025-01-15 20:21] VITALS: BP 123/68; TEMP 98.1; O2SAT 70
[2025-01-15] MEDS: SENNA 8.6 MG TAB PO SCH (20:25)
[2025-01-16 04:00] VITALS: BP 99/56; TEMP 97.5; O2SAT 94
[2025-01-16 06:25] LABS: PLATELET COUNT, AUTOMATED 340 10^3/uL (150-450)
[2025-01-16 06:47] LABS: CALCIUM LEVEL 9.1 MG/DL (8.3-10.6); CARBON DIOXIDE LEVEL 31.0 MMOL/L (20-31); CHLORIDE LEVEL 105.0 MMOL/L (98-107); CREATININE FOR GFR 1.22 MG/DL (0.55-1.30); GLOMERULAR FILTRATION RATE 48.6 (>45); MAGNESIUM LEVEL 2.0 MG/DL (1.8-2.4); POTASSIUM SERUM 3.9 MMOL/L (3.5-5.1); SODIUM LEVEL 145.0 MMOL/L (136-145)
[2025-01-16] MEDS ORDERED: TORS10TA3 PO (08:22)
[2025-01-16 08:45] VITALS: BP 155/79
== END 2025-01-16 11:39 | disposition home or self-care (01) | DRG 292 ==
LOC: M ED 10:23 → M ED INP 18:54 → M MSPAV 23:30
PROVIDERS: ADMIT Student in an Organized Health Care Education/Training Program; ATTEND Student in an Organized Health Care Education/Training Program
PROC: B246ZZZ Ultrasonography of Right and Left Heart (ICD-10-PCS; principal; 2025-01-15)
DX: I11.0 Hypertensive heart disease with heart failure (principal); J90 Pleural effusion, not elsewhere classified; I50.30 Unspecified diastolic (congestive) heart failure; I48.91 Unspecified atrial fibrillation; J45.909 Unspecified asthma, uncomplicated; G47.33 Obstructive sleep apnea (adult) (pediatric); M10.9 Gout, unspecified; K21.9 Gastro-esophageal reflux disease without esophagitis; Z79.01 Long term (current) use of anticoagulants; Z79.899 Other long term (current) drug therapy; Z88.8 Allergy status to other drugs, medicaments and biological substances

== ENCOUNTER → 2025-01-24 | Outpatient (REF) | payer MEDICARE ==
[~2025-01-24] MED LIST changes: +DILT240C28 PO
[2025-01-24 19:20] LABS: ALT/SGPT 13.0 U/L (7.0-40); AST/SGOT 14.0 U/L (<34); CALCIUM LEVEL 9.1 MG/DL (8.3-10.6); CARBON DIOXIDE LEVEL 29.0 MMOL/L (20-31); CHLORIDE LEVEL 104.0 MMOL/L (98-107); CREATININE FOR GFR 1.26 MG/DL (0.55-1.30); GLOMERULAR FILTRATION RATE 46.8 (>45); MAGNESIUM LEVEL 1.9 MG/DL (1.8-2.4); POTASSIUM SERUM 4.6 MMOL/L (3.5-5.1); SODIUM LEVEL 143.0 MMOL/L (136-145)
== END ==
LOC: M LABDRWAD 17:10
PROVIDERS: ATTEND Internal Medicine Cardiovascular Disease
DX: I10 Essential (primary) hypertension (principal); I49.3 Ventricular premature depolarization; I48.0 Paroxysmal atrial fibrillation

== ENCOUNTER → 2025-02-28 | Outpatient (CLI) | payer MEDICARE ==
[2025-02-28 16:06] LABS: CALCIUM LEVEL 9.9 MG/DL (8.3-10.6); CARBON DIOXIDE LEVEL 32.0 MMOL/L (20-31); CHLORIDE LEVEL 104.0 MMOL/L (98-107); CREATININE FOR GFR 1.28 MG/DL (0.55-1.30); GLOMERULAR FILTRATION RATE 45.9 (>45); MAGNESIUM LEVEL 2.0 MG/DL (1.8-2.4); POTASSIUM SERUM 4.7 MMOL/L (3.5-5.1); SODIUM LEVEL 145.0 MMOL/L (136-145)
== END ==
LOC: M PLALAB 12:35
PROVIDERS: ATTEND Registered Nurse
DX: I50.9 Heart failure, unspecified (principal); I48.91 Unspecified atrial fibrillation

== ENCOUNTER → 2025-03-14 | Outpatient (REF) | payer MEDICARE ==
[2025-03-14 18:54] LABS: CALCIUM LEVEL 9.9 MG/DL (8.3-10.6); CARBON DIOXIDE LEVEL 32.0 MMOL/L (20-31); CHLORIDE LEVEL 103.0 MMOL/L (98-107); CREATININE FOR GFR 1.22 MG/DL (0.55-1.30); GLOMERULAR FILTRATION RATE 48.6 (>45); MAGNESIUM LEVEL 2.0 MG/DL (1.8-2.4); POTASSIUM SERUM 4.3 MMOL/L (3.5-5.1); SODIUM LEVEL 143.0 MMOL/L (136-145)
== END ==
LOC: M LABDRWAD 17:50
PROVIDERS: ATTEND Registered Nurse
DX: I50.9 Heart failure, unspecified (principal); I48.91 Unspecified atrial fibrillation